=== PATIENT | male | born 1975 | race Caucasian/White ===

== ENCOUNTER 2017-12-21 12:23 | Day surgery (SDC) | payer OTHER ==
[~2017-12-21] VITALS: Ht 172.7 cm; Wt 87.5 kg
[~2017-12-21 12:23] MED LIST: BUPR150T2; CIPR500 PO; CYCL10; ESCI20; HYDACE5 PO; HYDR1TAB94 PO; METR500 PO; NAPR375 PO; NAPR500EC PO; ONDA4ODT MM; Percocet 5-3251 EACH PO; RAMI5; TRAZ50; Zofran Odt4 MG SL
[2017-12-21] MEDS ORDERED: DILT120ERA PO (12:43)
== END 2017-12-21 14:20 | disposition home or self-care (01) ==
LOC: ORSCSDS 12:23
DX: Z12.11 Encounter for screening for malignant neoplasm of colon (principal); D12.3 Benign neoplasm of transverse colon; D12.4 Benign neoplasm of descending colon; K62.1 Rectal polyp; K64.8 Other hemorrhoids; K57.30 Diverticulosis of large intestine without perforation or abscess without bleeding; Z80.0 Family history of malignant neoplasm of digestive organs; E78.5 Hyperlipidemia, unspecified; I10 Essential (primary) hypertension; G47.33 Obstructive sleep apnea (adult) (pediatric); F32.9 Major depressive disorder, single episode, unspecified; Z79.899 Other long term (current) drug therapy
CPT/HCPCS: 88305; J2250; J7120

== ENCOUNTER 2024-10-12 11:41 | Day surgery (SDC) | payer BC, OTHER ==
[~2024-10-12] VITALS: Ht 172.7 cm; Wt 106.6 kg
[~2024-10-12 11:41] MED LIST changes: +DILT120ERA PO; +Lactated Ringer's 1,000 ML IV ONE; +propofoL 50 ML IV ONE
[2024-10-12] MEDS ORDERED: SPIRONOLACTONE50 MG (12:17)
[2024-10-12] MEDS ORDERED: MAGNESIUM OXID500 MG (12:17)
[2024-10-12 12:44] VITALS: BP 165/115
[2024-10-12] MEDS ORDERED: Lactated Ringer's 1,000 ML IV ONE (12:47)
--- NOTE | 2024-10-12 13:13 | NUR ---
10/12/24 1313 Vesna Murray PT WITH BP 166/115 HR 113 168/124 @ 1300 RIGHT 156/125 @ 1301 LEFT 180/133 @ 1303 RADIAL
== END 2024-10-12 13:33 | disposition home or self-care (01) ==
LOC: ORSCSDS 11:41
DX: Z86.0100 Personal history of colon polyps, unspecified (principal); Z53.9 Procedure and treatment not carried out, unspecified reason
CPT/HCPCS: J2704; J7120

== ENCOUNTER 2025-06-14 08:04 | Day surgery (SDC) | payer BC, OTHER ==
[~2025-06-14] VITALS: Ht 175.3 cm; Wt 110.0 kg
[~2025-06-14 08:04] MED LIST changes: -Lactated Ringer's 1,000 ML IV ONE; +MAGNESIUM OXID500 MG; +SPIRONOLACTONE50 MG; -propofoL 50 ML IV ONE
[2025-06-14] MEDS ORDERED: AMLODIPINE BESYL5 MG (09:09)
[2025-06-14] MEDS ORDERED: LOSA50 (09:10)
[2025-06-14] MEDS ORDERED: Lidocaine HCl 2% Jelly 120MG/6ML SYR (20MG PER ML) ONE (09:48)
[2025-06-14 10:24] VITALS: BP 132/99
== END 2025-06-14 10:55 | disposition home or self-care (01) ==
LOC: ORSCSDS 08:04
PROVIDERS: Internal Medicine Gastroenterology
PROC: 0DBL8ZX Excision of Transverse Colon, Via Natural or Artificial Opening Endoscopic, Diagnostic (ICD-10-PCS; principal; 2025-06-14 09:30)
DX: Z12.11 Encounter for screening for malignant neoplasm of colon (principal); Z86.0101 Personal history of adenomatous and serrated colon polyps; D12.3 Benign neoplasm of transverse colon; K57.30 Diverticulosis of large intestine without perforation or abscess without bleeding; K64.8 Other hemorrhoids; K64.4 Residual hemorrhoidal skin tags; Z80.0 Family history of malignant neoplasm of digestive organs; I10 Essential (primary) hypertension; E78.5 Hyperlipidemia, unspecified; G47.33 Obstructive sleep apnea (adult) (pediatric); F32.A Depression, unspecified; G71.00 Muscular dystrophy, unspecified; Z79.899 Other long term (current) drug therapy
CPT/HCPCS: 88305; A9270; J2704; J7120